=== PATIENT | female | born 1965 | race Caucasian/White ===

== ENCOUNTER 2019-03-07 11:42 | Inpatient (IN) ==
--- NOTE | 2019-03-07 11:47 | Emergency Department Note ---
Disposition Clinical Impression: Chest pain, Gall stones, Pulmonary nodule Disposition: Admitted As Inpatient Condition: Fair General Adult HPI - General Chief complaint: ED Chest Pain Stated complaint: Chest Pain Time Seen by Provider: 03/07/19 11:43 - Related Data Home Medications Medication Instructions Recorded Confirmed Acetaminophen [Tylenol] 1,000 mg PO Q6HR PRN 03/07/19 03/07/19 Escitalopram [Lexapro] 20 mg PO DAILY 03/07/19 03/07/19 Ibuprofen [Advil] 400 mg PO Q6H PRN 03/07/19 03/07/19 Allergies Allergy/AdvReac Type Severity Reaction Status Date / Time meperidine [From Demerol] Allergy See Verified 03/07/19 11:45 Comments clarithromycin AdvReac Nausea Verified 03/07/19 15:42 Past Medical History - Past Medical History Medical history: Reports: GERD Surgical history: Reports: hysterectomy Psychiatric history: Reports: depression - Social History Smoking Status: Never smoker Smokeless Tobacco Status: No Alcohol use: Reports: none Drug use: Reports: none Course Vital Signs Temperature 99.4 F 03/07/19 11:45 Pulse Rate 90 03/07/19 11:45 Respiratory Rate 22 03/07/19 11:45 Blood Pressure 152/92 03/07/19 11:45 O2 Sat by Pulse Oximetry 100 03/07/19 11:45 Temperature 100.0 F H 03/07/19 15:04 Pulse Rate 96 03/07/19 15:04 Respiratory Rate 17 03/07/19 15:04 Blood Pressure 149/69 03/07/19 15:04 O2 Sat by Pulse Oximetry 97 03/07/19 15:04 Oxygen Delivery Oxygen Delivery Room Air Medical Decision Making - Lab Data Result diagrams: 03/07/19 11:50 03/07/19 11:50 Lab Results 03/07/19 03/07/19 03/07/19 Range/Units 11:50 11:50 11:50 WBC 8.7 (4.3-11.1) K/mcL RBC 4.21 (3.82-4.97) M/mcL Hgb 12.5 (11.5-15.4) g/dL Hct 39.3 (35.3-44.9) % MCV 93.3 (83.0-100.0) fL MCH 29.7 (28.0-33.3) pg MCHC 31.8 (31.6-35.5) g/dL RDW 13.7 (11.5-14.5) % Plt Count 253 (140-400) K/mcL MPV 10.4 (9.4-12.4) fL Immature Gran % 0.3 (0-4) % Seg Neutrophils % 77.6 % Lymphocytes % 11.9 % Monocytes % 6.5 % Eosinophils % 3.5 % Basophils % 0.2 % Neutrophils # 6.7 (1.6-8.9) K/mcL Lymphocytes # 1.0 (0.6-4.6) K/mcL Monocytes # 0.6 (0.0-1.3) K/mcL Eosinophils # 0.3 (0.0-0.6) K/mcL Basophils # 0.0 (0.0-0.2) K/mcL D-Dimer 754 H (0-500) ng/mLFEU Sodium 140 (136-145) mEq/L Potassium 4.2 (3.5-5.1) mEq/L Chloride 108 H (98-107) mEq/L Carbon Dioxide 25 (23-29) mEq/L BUN 17 (6-20) mg/dL Creatinine 0.79 (0.60-1.20) mg/dL Est GFR ( Amer) > 60 (> 60) Est GFR (Non-Af Amer) > 60 (> 60) BUN/Creatinine Ratio 22 (6-26) Glucose 99 (70-105) mg/dL Calculated Osmolality 292 (280-300) Calcium 8.9 (8.6-10.3) mg/dL Total Bilirubin 0.3 (0.3-1.0) mg/dL Direct Bilirubin 0.1 (0.0-0.2) mg/dL Indirect Bilirubin 0.2 (0.0-1.2) mg/dL AST 20 (13-39) Units/L ALT 34 (7-52) Units/L Alkaline Phosphatase 65 (34-104) Units/L Troponin I < 0.03 (< 0.04) ng/mL Serum Total Protein 7.1 (6.4-8.9) g/dL Albumin 4.3 (3.5-5.7) g/dL Globulin 2.8 (2.4-3.5) g/dL Albumin/Globulin Ratio 1.5 (1.1-2.2) Lipase 82 (11-82) Units/L Attestation Statement - Attestation Attestation: I reviewed the residents documentation and agree with the residents assessment and plan of care. I have personally had face to face time with the patient. (Brief History, Brief Exam, and MDM) I personally supervised and was present for the andrea/critical portions of the following procedures completed by the resident: (add procedures performed here). [id number] time provided Patient arrives complaining of chest discomfort. She states she "has not felt well" all morning but the chest discomfort started just prior to arrival. No known previous history of cardiac problems. She is tearful and uncomfortable appearing on exam. I attest to supervising the resident physician's interpretation of the ECG
[2019-03-07] MEDS ORDERED: Aspirin 325 MG TABLET PO ONE (11:50)
--- NOTE | 2019-03-07 11:51 | Emergency Department Note ---
Disposition Clinical Impression: Gall stones, Pulmonary nodule Chest pain Qualifiers: Chest pain type: unspecified Qualified Code(s): R07.9 - Chest pain, unspecified Disposition: Admitted As Inpatient Condition: Fair Referrals: Jc Mcintosh DO [Primary Care Provider] - Forms: ED Satisfaction Letter Time of Disposition: 14:18 Chest Pain HPI - General Chief Complaint: ED Chest Pain Stated Complaint: Chest Pain Time Seen by Provider: 03/07/19 11:43 Source: patient Mode of arrival: ambulatory Limitations: no limitations Vital Signs Reviewed: Yes Nursing Notes Reviewed: Yes - History of Present Illness HPI Narrative: 53-year-old female presents for evaluation of chest pain. Patient states symptom onset occurred approximately an hour prior to arrival. Patient states she was not feeling well this morning. Notes nausea but no vomiting. Patient describing left sided chest pain with pain or neck as well as pain in her shoulder. Patient denies prior history of heart attacks. Patient denies history of hypertension or diabetes. Does have family history of early heart disease with first-degree relatives having heart attacks in their early 40s. Patient denies any fevers or cough. No aggravating or alleviating symptoms. No pleuritic component. No history of DVT or PE. Patient states she does see a doctor on a regular basis. Severity scale (1-10): 7 - Related Data Home Medications Medication Instructions Recorded Confirmed Acetaminophen [Tylenol] 1,000 mg PO Q6HR PRN 03/07/19 03/07/19 Escitalopram [Lexapro] 20 mg PO DAILY 03/07/19 03/07/19 Ibuprofen [Advil] 400 mg PO Q6H PRN 03/07/19 03/07/19 Allergies Allergy/AdvReac Type Severity Reaction Status Date / Time meperidine [From Demerol] Allergy See Verified 03/07/19 11:45 Comments All systems ED: reviewed and negative except as stated. Constitutional: Denies: fever Cardiovascular: Reports: chest pain Respiratory: Reports: dyspnea. Denies: cough Gastrointestinal: Denies: abdominal pain, nausea, vomiting Chest Pain PMH - Past Medical History Medical history: Reports: GERD Surgical history: Reports: hysterectomy Psychiatric history: Reports: depression SIDE STITCHER history: Reports: non-contributory - Social History Smoking Status: Never smoker Alcohol use: Reports: none Drug use: Reports: none Physical Exam - General Limitations: no limitations General appearance: alert, in no apparent distress - Head Head exam: atraumatic, normocephalic, normal inspection - Eye Eye exam: Present: normal appearance - ENT ENT exam: normal exam, mucous membranes moist - Neck Neck exam: Present: normal inspection - Chest Chest inspection: Present: normal inspection, symmetric chest wall rise. Absent: tenderness - Respiratory Respiratory exam: Absent: respiratory distress, prolonged expiratory phase - Cardiovascular Cardiovascular exam: Present: regular rate, normal rhythm. Absent: normal heart sounds - Abdominal Exam Abdominal exam: Present: soft, Non-Tender - Extremities Exam Extremities exam: Present: normal inspection. Absent: pedal edema - Expanded Lower Extremity Exam Neurovascular/Tendon exam: Present: normal capillary refill - Back Exam Back exam: Present: normal inspection - Neurological Exam Neurological exam: Present: alert, oriented X3, CN II-XII intact - Skin Skin exam: Present: warm, dry, intact, normal color Course Course Narrative: Patient seen and examined. Patient is complaining of chest pain. Patient is deemed low risk and will also obtain a d-dimer given her history and EKG. Disposition pending. - Reevaluation(s) Reevaluation #1: Patient states that the nitroglycerin did help with her chest pain. Patient is complaining of some nausea and some epigastric pain. Patient's d-dimer came back elevated. We will obtain a CTA chest. Patient's updated on current plan of care. Time: 12:33 Reevaluation #2: Review [facility] G shows normal sinus rhythm left axis. No ST elevation. [address] depression in the 1. No acute changes. Time: 12:49 Vital Signs Temperature 99.4 F 03/07/19 11:45 Pulse Rate 90 03/07/19 11:45 Respiratory Rate 22 03/07/19 11:45 Blood Pressure 152/92 03/07/19 11:45 O2 Sat by Pulse Oximetry 100 03/07/19 11:45 Temperature 99.4 F 03/07/19 11:45 Pulse Rate 84 03/07/19 14:06 Respiratory Rate 18 03/07/19 14:06 Blood Pressure 151/97 03/07/19 14:06 O2 Sat by Pulse Oximetry 100 03/07/19 14:06 Oxygen Delivery Oxygen Delivery Room Air Chest Pain - MDM Narrative Medical decision making narrative: Patient presented for concerns of chest pain. Patient looked uncomfortable. Patient did have an abnormal EKG with some mild ST depression in lead 1. Patient received aspirin and nitroglycerin. Patient's chest pain resolved after the nitroglycerin. Patient was however complaining of some different pain in her chest which appears to be upper left sided abdominal pain. Patient initial troponin negative. Serial EKGs are unremarkable. Patient did have mildly elevated d-dimer and a CTA of the chest was obtained which shows no PE however the patient does have evidence of gallstones on CT scan. Patient will get an ultrasound however the patient will still need to be admitted for moderate risk heart score. Patient is agreeable with admission for serial troponins and continued cardiac evaluation. - Lab Data Lab results reviewed: Yes I reviewed the patient's lab results. Result diagrams: 03/07/19 11:50 03/07/19 11:50 Lab Results 03/07/19 03/07/19 03/07/19 Range/Units 11:50 11:50 11:50 WBC 8.7 (4.3-11.1) K/mcL RBC 4.21 (3.82-4.97) M/mcL Hgb 12.5 (11.5-15.4) g/dL Hct 39.3 (35.3-44.9) % MCV 93.3 (83.0-100.0) fL MCH 29.7 (28.0-33.3) pg MCHC 31.8 (31.6-35.5) g/dL RDW 13.7 (11.5-14.5) % Plt Count 253 (140-400) K/mcL MPV 10.4 (9.4-12.4) fL Immature Gran % 0.3 (0-4) % Seg Neutrophils % 77.6 % Lymphocytes % 11.9 % Monocytes % 6.5 % Eosinophils % 3.5 % Basophils % 0.2 % Neutrophils # 6.7 (1.6-8.9) K/mcL Lymphocytes # 1.0 (0.6-4.6) K/mcL Monocytes # 0.6 (0.0-1.3) K/mcL Eosinophils # 0.3 (0.0-0.6) K/mcL Basophils # 0.0 (0.0-0.2) K/mcL D-Dimer 754 H (0-500) ng/mLFEU Sodium 140 (136-145) mEq/L Potassium 4.2 (3.5-5.1) mEq/L Chloride 108 H (98-107) mEq/L Carbon Dioxide 25 (23-29) mEq/L BUN 17 (6-20) mg/dL Creatinine 0.79 (0.60-1.20) mg/dL Est GFR ( Amer) > 60 (> 60) Est GFR (Non-Af Amer) > 60 (> 60) BUN/Creatinine Ratio 22 (6-26) Glucose 99 (70-105) mg/dL Calculated Osmolality 292 (280-300) Calcium 8.9 (8.6-10.3) mg/dL Total Bilirubin 0.3 (0.3-1.0) mg/dL Direct Bilirubin 0.1 (0.0-0.2) mg/dL Indirect Bilirubin 0.2 (0.0-1.2) mg/dL AST 20 (13-39) Units/L ALT 34 (7-52) Units/L Alkaline Phosphatase 65 (34-104) Units/L Troponin I < 0.03 (< 0.04) ng/mL Serum Total Protein 7.1 (6.4-8.9) g/dL Albumin 4.3 (3.5-5.7) g/dL Globulin 2.8 (2.4-3.5) g/dL Albumin/Globulin Ratio 1.5 (1.1-2.2) Lipase 82 (11-82) Units/L - Radiology Data Radiology results reviewed: Yes I reviewed the patient's radiology results. Chest X-Ray 03/07/19 11:45 IMPRESSION: No acute process. D/ / Maria Ines Mejia MD / Maria Ines Mejia MD Interpreting Provider: Maria Ines Mejia MD Chest CTA 03/07/19 12:30 IMPRESSION: No pulmonary embolism or acute pulmonary process demonstrated. Left lower lobe pulmonary nodule for which PET-CT evaluation is recommended. This would be a very difficult location to biopsy. Lower mediastinal adenopathy which may either be reactive or metastatic. D/ / Mihir Childers MD / Mihir Childers MD Interpreting Provider: Mihir Childers MD - EKG Data EKG attestation: Yes I reviewed and interpreted this EKG. EKG shows normal: sinus rhythm Rhythm: NSR [place]/QRS: left axis deviation ST segment depression in: I T wave inversions noted in: v1 Interpretation: no acute changes, nonspecific ST-T wave changes Heart Score - Score History: Moderately Suspicious EKG: Non Specific repolarisation Disturbance Age: 45-65 Risk Factors: 1-2 risk factors Troponin: Less than normal limit HEART Score Total: 4 S.Enedina.Milad - Cari.Eze Situation: Demographics Background: Presenting Complaint Assessment: Vital Signs, Course and respsone to treatment, Patient/Family Expectation Recommendation: Barrier(s) to disposition, Recommendation based on pending studies, treatments, or consults [facility] Report Given to: Hospitalist Damian Hamilton Time: 14:20
[2019-03-07] MEDS ORDERED: Nitroglycerin 0.4 MG TAB.SUBL SL ONE (11:59)
[2019-03-07] MEDS ORDERED: 0.9 % Sodium Chloride 1,000 ML ONE (12:00)
[2019-03-07] MEDS: Nitroglycerin 0.4 MG TAB.SUBL SL PRN ×2 (12:03→12:09)
[2019-03-07 12:14] LABS: Basophils % 0.2 %; Eosinophils # 0.3 K/mcL (0.0-0.6); Eosinophils % 3.5 %; Hematocrit 39.3 % (35.3-44.9); Hemoglobin 12.5 g/dL (11.5-15.4); Immature Granulocytes % 0.3 % (0-4); Lymphocytes % 11.9 %; Mean Corpuscular HGB Conc 31.8 g/dL (31.6-35.5); Mean Corpuscular Hemoglobin 29.7 pg (28.0-33.3); Mean Corpuscular Volume 93.3 fL (83.0-100.0); Mean Platelet Volume 10.4 fL (9.4-12.4); Monocytes # 0.6 K/mcL (0.0-1.3); Monocytes % 6.5 %; Neutrophils # 6.7 K/mcL (1.6-8.9); Platelet Count 253 K/mcL (140-400); Red Blood Count 4.21 M/mcL (3.82-4.97); Red Cell Distribution Width 13.7 % (11.5-14.5); Segmented Neutrophils % 77.6 %
[2019-03-07] MEDS ORDERED: Isovue-370 500 ML BOTTLE IVP ONE (12:30)
[2019-03-07] MEDS ORDERED: Ondansetron 4 MG/2 ML VIAL IVP ONE (12:33)
[2019-03-07 12:40] LABS: Alanine Aminotransferase 34 Units/L (7-52); Albumin 4.3 g/dL (3.5-5.7); Albumin/Globulin Ratio 1.5 (1.1-2.2); Alkaline Phosphatase 65 Units/L (34-104); Aspartate Amino Transferase 20 Units/L (13-39); BUN/Creatinine Ratio 22 (6-26); Bilirubin,Direct 0.1 mg/dL (0.0-0.2); Bilirubin,Indirect 0.2 mg/dL (0.0-1.2); Bilirubin,Total 0.3 mg/dL (0.3-1.0); Blood Urea Nitrogen 17 mg/dL (6-20); Calcium 8.9 mg/dL (8.6-10.3); Carbon Dioxide 25 mEq/L (23-29); Chloride 108 mEq/L (98-107); Globulin 2.8 g/dL (2.4-3.5); Glucose 99 mg/dL (70-105); Lipase 82 Units/L (11-82); Osmolality,Calculated 292 (280-300); Potassium 4.2 mEq/L (3.5-5.1); Sodium 140 mEq/L (136-145); Total Protein 7.1 g/dL (6.4-8.9); Troponin I < 0.03 ng/mL (< 0.04); eGFR For Non-African Americans > 60 (> 60)
[2019-03-07] MEDS ORDERED: *HR* Morphine 2 MG/ML SYRINGE IVP ONE (14:15)
[2019-03-07] MEDS ORDERED: MOM Conc 10 ML UD.LIQ PO PRN (15:02)
[2019-03-07] MEDS ORDERED: Ondansetron 4 MG/2 ML VIAL IVP PRN (15:02)
[2019-03-07] MEDS ORDERED: Naloxone 0.4 MG/ML INJ IVP PRN (15:02)
[2019-03-07] MEDS ORDERED: *HR* Promethazine 25 MG/ML VIAL IVP PRN (15:02)
[2019-03-07] MEDS ORDERED: Mag Hydrox/Al Hydrox/Simeth 30 ML UDC PO PRN (15:02)
--- NOTE | 2019-03-07 15:14 | Internal Med History&Physical ---
Date of Encounter: 03/07/19 Time of Encounter: 15:09 Internal Medicine - H&P: HPI Admitted From: Home Plans for Post Hospital Care: Home History of present illness: Ms. Red is a 53-year-old female with PMH of depression, GERD, and peptic ulcer disease presents for evaluation of chest pain. Patient states symptom onset occurred approximately an hour prior to arrival. Patient states she was not feeling well this morning. Notes nausea but no vomiting. Patient describing left sided chest pain with pain on neck as well as pain in her sh oulder. Patient denies prior history of heart attacks. Patient denies history of hypertension or diabetes. Does have family history of early heart disease with first-degree relatives having heart attacks in their early 40s. Patient denies any fevers or cough. No aggravating or alleviating symptoms. No pleuritic component. No history of DVT or PE. Patient states she does see a doctor on a regular basis. In the ED, pt first set of troponin was negative, EKG showed questionable ST-T changes on leads V1-V3. CTA chest revealed no PE, several enlarged mediastinal lymph nodes. She received one NTG with relief of symptoms. She later on reported left upper quadrant and epigastric pain and received one dose of Zofran. Pt also reported taking ibuprofen at home for pain. She will be admitted for further evaluation. Code status discussed with pt and she wished to be full code. Past Med Surg Social Fam HX - Past Medical History Medical history: GERD Additional medical history: disorder of sacram,endometriosis,peptic ulcers,retrolisthesis l2 on l3,bulding disc,lumbosacral sprain,sleep apnea Psychiatric history: depression - Past Surgical History Surgical History: hysterectomy Additional surgical history: tonsils, - Social History Smoking Status: Never smoker Smokeless Tobacco Status: No Alcohol use: none Drug use: none Internal Medicine - H&P: Meds Acetaminophen [Tylenol] 1,000 mg PO Q6HR PRN 03/07/19 [History] Escitalopram [Lexapro] 20 mg PO DAILY 03/07/19 [History] Ibuprofen [Advil] 400 mg PO Q6H PRN 03/07/19 [History] Allergy/AdvReac Type Severity Reaction Status Date / Time meperidine [From Demerol] Allergy See Verified 03/07/19 11:45 Comments All Systems PM: A 10-system review of systems was performed and is negative for pertinent findings except as documented above in the HPI. Review of systems: REVIEW OF SYSTEMS: CONSTITUTIONAL: No weight loss, fever, chills, weakness or fatigue. HEENT: Eyes: No visual loss, blurred vision, double vision or yellow sclerae. Ears, Nose, Throat: No hearing loss, sneezing, congestion, runny nose or sore throat. SKIN: No rash or itching. CARDIOVASCULAR: see HPI. RESPIRATORY: No shortness of breath, cough or sputum. GASTROINTESTINAL: No anorexia, nausea, vomiting or diarrhea. No abdominal pain or blood. GENITOURINARY: No dysuria, urgency, or frequency. NEUROLOGICAL: No headache, dizziness, syncope, paralysis, ataxia, numbness or tingling in the extremities. No change in bowel or bladder control. MUSCULOSKELETAL: No muscle, back pain, joint pain or stiffness. HEMATOLOGIC: No anemia, bleeding or bruising. LYMPHATICS: No enlarged nodes. No history of splenectomy. PSYCHIATRIC: No history of depression or anxiety. ENDOCRINOLOGIC: No reports of sweating, cold or heat intolerance. No polyuria or polydipsia. - Constitutional Vitals: Temp Pulse Resp BP Pulse Ox 100.0 F H 96 17 149/69 97 03/07/19 15:04 03/07/19 15:04 03/07/19 15:04 03/07/19 15:04 03/07/19 15:04 General appearance: Present: A&O X 3 Exam: PHYSICAL EXAMINATION: GENERAL APPEARANCE: The patient is alert, oriented and in no acute distress. HEENT: Head is normocephalic. The sinuses are nontender. Pupils are equal and reactive. The nares are patent. Oropharynx clear without lesions. NECK: Supple without lymphadenopathy. HEART: Regular rate and rhythm. LUNGS: No crackles or wheezes are heard. ABDOMEN: Soft, nontender, nondistended with good bowel sounds heard. Inguinal area is normal. EXTREMITIES: Without cyanosis, clubbing or edema. NEUROLOGICAL: Gross nonfocal. SKIN: Warm and dry without any rash. Internal Med - H&P Results - Labs CBC & Chem 7: 03/07/19 11:50 03/07/19 11:50 Labs: Short CBC 03/07/19 Range/Units 11:50 WBC 8.7 (4.3-11.1) K/mcL Hgb 12.5 (11.5-15.4) g/dL Hct 39.3 (35.3-44.9) % Plt Count 253 (140-400) K/mcL Neutrophils # 6.7 (1.6-8.9) K/mcL BMP 03/07/19 11:50 Sodium 140 Potassium 4.2 Chloride 108 H Carbon Dioxide 25 BUN 17 Creatinine 0.79 Glucose 99 Calcium 8.9 Cardiac Enzymes 03/07/19 Range/Units 11:50 Troponin I < 0.03 (< 0.04) ng/mL Liver Function 03/07/19 Range/Units 11:50 Total Bilirubin 0.3 (0.3-1.0) mg/dL Direct Bilirubin 0.1 (0.0-0.2) mg/dL AST 20 (13-39) Units/L ALT 34 (7-52) Units/L Alkaline Phosphatase 65 (34-104) Units/L Albumin 4.3 (3.5-5.7) g/dL - Impressions ITS Impressions Chest X-Ray 03/07/19 11:45 IMPRESSION: No acute process. D/ / Maria Ines Mejia MD / Maria Ines Mejia MD Interpreting Provider: Maria Ines Mejia MD Chest CTA 03/07/19 12:30 IMPRESSION: No pulmonary embolism or acute pulmonary process demonstrated. Left lower lobe pulmonary nodule for which PET-CT evaluation is recommended. This would be a very difficult location to biopsy. Lower mediastinal adenopathy which may either be reactive or metastatic. D/ / Mihir Childers MD / Mihir Childers MD Interpreting Provider: Mihir Childers MD - Assessment and Plan (1) Chest pain Current Visit: Yes Status: Acute Assessment and plan: 53 year old female without prior hx of CAD presented with left sided chest pain and epigastric pain. 1st set of troponin was negative. EKG showed possible st-t elevation on V1 and biphasic t wave on V2, however, these findings were obscured by the EKG baseline shifting. CTA chest no PE but revealed cholilithiasis without signs of acute cholecystitis, no obvious findings suggests esophagitis or perforated PUD. - continue cycling troponin, tele monitoring, and EKG as needed. - Stress test and echo in am. - empirically treated for PUD with IV PPI and carafate. May consult GI if cardiac workup is negative. - Lipid panel an am. Qualifiers: Chest pain type: unspecified Qualified Code(s): R07.9 - Chest pain, unspecified (2) Gall stones Current Visit: Yes Status: Acute Assessment and plan: CT incidental finding of gall stones but no acute cholecystitis. Monitoring. (3) Pulmonary nodule Current Visit: Yes Status: Acute Assessment and plan: incidental finding on CTA chest, outpatient f/u. (4) Depression Current Visit: No Status: Chronic Assessment and plan: continue home meds. Qualifiers: Depression Type: unspecified Qualified Code(s): F32.9 - Major depressive disorder, single episode, unspecified (5) Hx of peptic ulcer Current Visit: No Status: Chronic Assessment and plan: Hx of PUD currently not on PPI. take NSAIDS at home for pain. No signs/symptoms of GI bleeding or perforation. Empirically started on IV PPI and carafate. May consult GI if cardiac workup is negative. (6) GERD (gastroesophageal reflux disease) Current Visit: No Status: Chronic Assessment and plan: same as above. Qualifiers: Esophagitis presence: esophagitis presence not specified Qualified Code(s): K21.9 - Gastro-esophageal reflux disease without esophagitis (7) DVT prophylaxis Current Visit: Yes Status: Acute Assessment and plan: ambulate. - Time Spent With Patient Total time spent is greater than 50% in coordination of care (as documented) at patient's floor/unit and/or counseling patient: Greater than 35 minutes
[2019-03-07] MEDS: Pantoprazole 40 MG VIAL IVP SCH (16:15)
[2019-03-07] MEDS: Sucralfate 1 GM TABLET PO SCH ×2 (16:15→21:16)
[2019-03-07] MEDS: traMADol 50 MG TABLET PO PRN (16:15)
[2019-03-07] MEDS: Acetaminophen 325 MG TABLET PO PRN (17:47)
[2019-03-07] MEDS ORDERED: Perflutren Lipid Microsphere 1.3 ML in 0.9 % Sodium Chloride 8.7 ML IVP ONE (19:42)
--- NOTE | 2019-03-07 22:21 | Electrocardiograph Report ---
[facility] Test Date: 2019-03-07 Pat Name: Winifred Red Department: [id number] Room: 3B33 Gender: F [employer]: : 1965 Requested By: Anish Mckeon Order Number: [id number] Reading MD: Kamar Renner Measurements Intervals [place] Rate: 61 P: 51 [place]: 142 QRS: -12 QRSD: 97 T: 34 QT: 401 QTc: 404 Interpretive Statements Sinus rhythm Electronically Signed On 03-07-2019 22:19:24 EDT by Kamar Renner
[2019-03-08] MEDS: Acetaminophen 325 MG TABLET PO PRN ×2 (00:55→09:32)
[2019-03-08] MEDS: traMADol 50 MG TABLET PO PRN ×3 (03:36→22:29)
[2019-03-08 04:27] LABS: Basophils % 0.2 %; Eosinophils # 0.2 K/mcL (0.0-0.6); Eosinophils % 3.3 %; Hematocrit 38.1 % (35.3-44.9); Immature Granulocytes % 0.4 % (0-4); Lymphocytes # 0.9 K/mcL (0.6-4.6); Lymphocytes % 18.7 %; Mean Corpuscular HGB Conc 31.5 g/dL (31.6-35.5); Mean Corpuscular Hemoglobin 29.7 pg (28.0-33.3); Mean Corpuscular Volume 94.3 fL (83.0-100.0); Mean Platelet Volume 10.5 fL (9.4-12.4); Monocytes # 0.4 K/mcL (0.0-1.3); Monocytes % 7.9 %; Neutrophils # 3.4 K/mcL (1.6-8.9); Platelet Count 231 K/mcL (140-400); Red Blood Count 4.04 M/mcL (3.82-4.97); Red Cell Distribution Width 13.9 % (11.5-14.5); Segmented Neutrophils % 69.5 %
[2019-03-08 04:49] LABS: BUN/Creatinine Ratio 14 (6-26); Blood Urea Nitrogen 13 mg/dL (6-20); Calcium 8.6 mg/dL (8.6-10.3); Carbon Dioxide 25 mEq/L (23-29); Chloride 107 mEq/L (98-107); Chol/HDL Ratio 2.8 (0-4.9); Cholesterol 128 mg/dL (< 200); Glucose 105 mg/dL (70-105); HDL Cholesterol 46 mg/dL (40-59); LDL Cholesterol,Calculated 65 mg/dL (0-99); Osmolality,Calculated 290 (280-300); Sodium 140 mEq/L (136-145); Triglycerides 85 mg/dL (< 150); eGFR For Non-African Americans > 60 (> 60)
[2019-03-08] MEDS: Pantoprazole 40 MG VIAL IVP SCH ×2 (05:44→18:07)
[2019-03-08] MEDS ORDERED: Regadenoson 0.4 MG/5 ML SYRINGE IVP ONE (07:38)
[2019-03-08] MEDS: Sucralfate 1 GM TABLET PO SCH ×4 (09:29→22:26)
--- NOTE | 2019-03-08 11:49 | Internal Med Progress Note ---
Hospitalist Progress Note - Encounter Date of Encounter: 03/08/19 Time of Encounter: 11:46 - Subjective Interval History: Patient is seen and examined in the room. She reported improved chest pain and the left-sided abdominal pain. Overnight, patient denies fever, night sweats, or chills. - Exam Vitals: Temp Pulse Resp BP Pulse Ox 97.5 F L 75 18 95/63 96 03/08/19 11:40 03/08/19 11:40 03/08/19 11:40 03/08/19 11:40 03/08/19 11:40 Exam: PHYSICAL EXAMINATION: GENERAL APPEARANCE: The patient is alert, oriented and in no acute distress. HEENT: Head is normocephalic. The sinuses are nontender. Pupils are equal and reactive. The nares are patent. Oropharynx clear without lesions. NECK: Supple without lymphadenopathy. HEART: Regular rate and rhythm. LUNGS: No crackles or wheezes are heard. ABDOMEN: Soft, nontender, nondistended with good bowel sounds heard. Inguinal area is normal. EXTREMITIES: Without cyanosis, clubbing or edema. NEUROLOGICAL: Gross nonfocal. SKIN: Warm and dry without any rash. - Assessment and Plan (1) Chest pain Current Visit: Yes Status: Acute Assessment and Plan: 03/07 53 year old female without prior hx of CAD presented with left sided chest pain and epigastric pain. 1st set of troponin was negative. EKG showed possible st-t elevation on V1 and biphasic t wave on V2, however, these findings were obscured by the EKG baseline shifting. CTA chest no PE but revealed cholilithiasis without signs of acute cholecystitis, no obvious findings suggests esophagitis or perforated PUD. - continue cycling troponin, tele monitoring, and EKG as needed. - Stress test and echo in am. - empirically treated for PUD with IV PPI and carafate. May consult GI if cardiac workup is negative. - Lipid panel an am. 03/08 Serial troponin was negative 3, EKG has no acute ST-T change overnight. Patient currently chest pain-free. Pending stress test and echocardiogram. (2) Gall stones Current Visit: Yes Status: Acute Assessment and Plan: CT incidental finding of gall stones but no acute cholecystitis. Monitoring. (3) Pulmonary nodule Current Visit: Yes Status: Acute Assessment and Plan: incidental finding on CTA chest, outpatient f/u. (4) Depression Current Visit: No Status: Chronic Assessment and Plan: continue home meds. (5) Hx of peptic ulcer Current Visit: No Status: Chronic Assessment and Plan: Hx of PUD currently not on PPI. take NSAIDS at home for pain. No signs/symptoms of GI bleeding or perforation. Empirically started on IV PPI and carafate. May consult GI if cardiac workup is negative. (6) GERD (gastroesophageal reflux disease) Current Visit: No Status: Chronic Assessment and Plan: same as above. (7) DVT prophylaxis Current Visit: Yes Status: Acute Assessment and Plan: ambulate. - Time Spent with Patient Total time spent is greater than 50% in coordination of care (as documented) at patient's floor/unit and/or counseling patient: Greater than 35 minutes Plan of Care Discussed with: patient Internal Medicine: Result - Labs CBC & Chem 7: 03/08/19 03:45 03/08/19 03:45 Labs: Short CBC 03/07/19 03/08/19 Range/Units 11:50 03:45 WBC 8.7 4.9 (4.3-11.1) K/mcL Hgb 12.5 12.0 (11.5-15.4) g/dL Hct 39.3 38.1 (35.3-44.9) % Plt Count 253 231 (140-400) K/mcL Neutrophils # 6.7 3.4 (1.6-8.9) K/mcL BMP 03/07/19 03/08/19 11:50 03:45 Sodium 140 140 Potassium 4.2 4.0 Chloride 108 H 107 Carbon Dioxide 25 25 BUN 17 13 Creatinine 0.79 0.93 Glucose 99 105 Calcium 8.9 8.6 Cardiac Enzymes 03/07/19 03/07/19 03/08/19 Range/Units 11:50 18:53 00:50 Troponin I < 0.03 < 0.03 < 0.03 (< 0.04) ng/mL Liver Function 03/07/19 Range/Units 11:50 Total Bilirubin 0.3 (0.3-1.0) mg/dL Direct Bilirubin 0.1 (0.0-0.2) mg/dL AST 20 (13-39) Units/L ALT 34 (7-52) Units/L Alkaline Phosphatase 65 (34-104) Units/L Albumin 4.3 (3.5-5.7) g/dL - ABG Interpretation ABG results: PT/INR, D-dimer 754 ng/mLFEU (0-500) H 03/07/19 11:50 - Impressions Impressions Chest X-Ray 03/07/19 11:45 IMPRESSION: No acute process. D/ / Maria Ines Mejia MD / Maria Ines Mejia MD Interpreting Provider: Maria Ines Mejia MD Chest CTA 03/07/19 12:30 IMPRESSION: No pulmonary embolism or acute pulmonary process demonstrated. Left lower lobe pulmonary nodule for which PET-CT evaluation is recommended. This would be a very difficult location to biopsy. Lower mediastinal adenopathy which may either be reactive or metastatic. D/ / Mihir Childers MD / Mihir Childers MD Interpreting Provider: Mihir Childers MD Consult Discharge Plan - Plan Referrals: Jc Mcintosh DO [Primary Care Provider] - 03/14/19 9:30 am () (1) Chest pain Qualifiers: Chest pain type: unspecified Qualified Code(s): R07.9 - Chest pain, unspecified (4) Depression Qualifiers: Depression Type: unspecified Qualified Code(s): F32.9 - Major depressive disorder, single episode, unspecified (6) GERD (gastroesophageal reflux disease) Qualifiers: Esophagitis presence: esophagitis presence not specified Qualified Code(s): K21.9 - Gastro-esophageal reflux disease without esophagitis
--- NOTE | 2019-03-08 17:59 | AcuteCare Surgery Consult Note ---
<WalkerAnnabelle N - Last Filed: 03/08/19 17:56> Date of Encounter: 03/08/19 Time of Encounter: 05:00 Assessment and Plan (1) Abdominal pain Current Visit: Yes Status: Acute 53-year-old female admitted with epigastric abdominal pain radiating to the left chest wall associated with nausea Patient previously diagnosed with chronic gastritis and H. pylori on EGD in October 2018 Patient was appropriately treated at that time with 2 antibiotics and a PPI For the past 3 months patient reports increased epigastric pain which has been controlled with omeprazole and ranitidine with occasional use of Tums as well Patient denies any hematochezia, melena, vomiting or hematemesis Patient is currently undergoing cardiac workup with 2 day stress test as there was concern for chest pain on admission Pending results of the cardiac evaluation will plan for possible EGD during this admission Patient agrees with plan and all of her questions were answered Continue Protonix, Carafate, and anti-emetics Qualifiers: Abdominal location: epigastric Qualified Code(s): R10.13 - Epigastric pain History of Present Illness Consult date: 03/08/19 History of present illness: Patient is a 53-year-old female with a past medical history of chronic gastritis with positive H. pylori diagnosed on EGD with biopsy in October 2017. At that time patient was treated with 2 antibiotics and a PPI. Patient reports a 3 month history of worsening epigastric pain and discomfort. She states that she had relief with omeprazole and ranitidine with occasional Tums as an outpatient. Patient presented to the hospital for 1 day acute exacerbation of her epigastric abdominal pain with radiation to the left chest wall. In the emergency department patient's cardiac workup was generally unremarkable. CTA chest was performed and was negative for PE, however there are incidental findings of cholelithiasis but no evidence for cholecystitis. Patient is admitted the hospital is currently undergoing cardiac workup. Due to history of chronic gastritis with H. pylori and current epigastric pain patient was started on Protonix 40 mg twice a day and Carafate with symptomatic improvement in patient's abdominal pain. Acute care surgery was consulted for further evaluation and recommendations. Patient is currently resting in bed, appears comfortable and is tolerating her clear liquid diet. Abdomen is soft and mildly tender on deep palpation of the epigastric region. There is no guarding or rigidity. Patient denies any change in her stools. Denies any hematochezia or melena. Denies any recent vomiting, but reports significant nausea. Past Med Surg Social Fam HX - Past Medical History Medical history: GERD Additional medical history: disorder of sacrum L4/L5,endometriosis,peptic ulcers,retrolisthesis l2 on l3,bulding disc,lumbosacral sprain,sleep apnea Psychiatric history: anxiety, depression - Past Surgical History Surgical History: hysterectomy Additional surgical history: tonsils - Social History Smoking Status: Never smoker Smokeless Tobacco Status: No Alcohol use: occasionally Drug use: none - Family History Mother Living Status: Age at : 73 Cause of : CHF Hx Family Cardiac Disorders: Yes (Rheumatic Heart Disease, CHF, CABG, Mitral valve replacement) Hx Family Respiratory Disorders: Yes (pulmonary HTN) Hx Family GI Disorders: Yes (vimal) Father Living Status: Age at : 64 Cause of : [facility] cancer Hx Family Respiratory Disorders: Yes (lung) Medications and Allergies Acetaminophen [Tylenol] 1,000 mg PO Q6HR PRN 03/07/19 [History] Escitalopram [Lexapro] 20 mg PO DAILY 03/07/19 [History] Ibuprofen [Advil] 400 mg PO Q6H PRN 03/07/19 [History] Allergy/AdvReac Type Severity Reaction Status Date / Time meperidine [From Demerol] Allergy See Verified 03/07/19 11:45 Comments clarithromycin AdvReac Nausea Verified 03/07/19 15:42 Review of Systems All systems PM: The remainder of the systems were reviewed and are negative - Constitutional fever(s), no chills - Cardiovascular no chest pain - Respiratory no dyspnea - Gastrointestinal abdominal pain, bloating, nausea, no diarrhea, no hematochezia, no melena, no vomiting - Genitourinary Genitourinary: no dysuria - Integumentary no rash - Endocrine polyuria General Surgery Exam Initial Vital Signs Temp Pulse Resp BP Pulse Ox 99.4 F 90 22 152/92 100 03/07/19 11:45 03/07/19 11:45 03/07/19 11:45 03/07/19 11:45 03/07/19 11:45 - General physical appearance well developed, well nourished - Eyes PERRL, normal ocular movement - ENT normal pinna, normal nares - Neck trachea midline, no venous distension - Respiratory normal expansion, normal respiratory effort, clear to auscultation - Cardiovascular Cardiovascular exam: Present: RRR. Absent: murmurs - Abdomen Abdomen general surgery: Present: bowel sounds present, soft, tender (Mild t enderness to palpation without guarding in the epigastric region) - Integumentary Integumentary general surgery: Present: warm and dry - Neurologic Present: CN 2-12 grossly intact - Musculoskeletal Present: normal posture - Psychiatric Psychiatric general surgery: Present: A&Ox3 Exam Initial Vital Signs Temp Pulse Resp BP Pulse Ox 99.4 F 90 22 152/92 100 03/07/19 11:45 03/07/19 11:45 03/07/19 11:45 03/07/19 11:45 03/07/19 11:45 Results - Labs 03/08/19 03:45 03/08/19 03:45 Abnormal lab results MCHC 31.5 g/dL (31.6-35.5) L 03/08/19 03:45 754 ng/mLFEU (0-500) H 03/07/19 11:50 Chloride 108 mEq/L (98-107) H 03/07/19 11:50 Diabetes panel 03/08/19 Range/Units 03:45 Sodium 140 (136-145) mEq/L Potassium 4.0 (3.5-5.1) mEq/L Chloride 107 (98-107) mEq/L Carbon Dioxide 25 (23-29) mEq/L BUN 13 (6-20) mg/dL Creatinine 0.93 (0.60-1.20) mg/dL Glucose 105 (70-105) mg/dL Calcium 8.6 (8.6-10.3) mg/dL Triglycerides 85 (< 150) mg/dL HDL Cholesterol 46 (40-59) mg/dL Calcium panel 03/08/19 Range/Units 03:45 Calcium 8.6 (8.6-10.3) mg/dL Pituitary panel 03/08/19 Range/Units 03:45 Sodium 140 (136-145) mEq/L Potassium 4.0 (3.5-5.1) mEq/L Chloride 107 (98-107) mEq/L Carbon Dioxide 25 (23-29) mEq/L BUN 13 (6-20) mg/dL Creatinine 0.93 (0.60-1.20) mg/dL Glucose 105 (70-105) mg/dL Calcium 8.6 (8.6-10.3) mg/dL Adrenal panel 03/08/19 Range/Units 03:45 Sodium 140 (136-145) mEq/L Potassium 4.0 (3.5-5.1) mEq/L Chloride 107 (98-107) mEq/L Carbon Dioxide 25 (23-29) mEq/L BUN 13 (6-20) mg/dL Creatinine 0.93 (0.60-1.20) mg/dL Glucose 105 (70-105) mg/dL Calcium 8.6 (8.6-10.3) mg/dL All other labs normal. Consult Discharge Plan - Plan Referrals: Jc Mcintosh DO [Primary Care Provider] - 03/14/19 9:30 am () <Lucian Barbosa - Last Filed: 03/09/19 13:51> Date of Encounter: 03/08/19 Review of Systems All systems PM: The remainder of the systems were reviewed and are negative General Surgery Exam Initial Vital Signs Temp Pulse Resp BP Pulse Ox 99.4 F 90 22 152/92 100 03/07/19 11:45 03/07/19 11:45 03/07/19 11:45 03/07/19 11:45 03/07/19 11:45 Exam Initial Vital Signs Temp Pulse Resp BP Pulse Ox 99.4 F 90 22 152/92 100 03/07/19 11:45 03/07/19 11:45 03/07/19 11:45 03/07/19 11:45 03/07/19 11:45 Results - Labs 03/08/19 03:45 03/08/19 03:45 Abnormal lab results MCHC 31.5 g/dL (31.6-35.5) L 03/08/19 03:45 754 ng/mLFEU (0-500) H 03/07/19 11:50 Chloride 108 mEq/L (98-107) H 03/07/19 11:50 All other labs normal. - Attending Attestation I examined this patient and my medical decision-making was reviewed with the Resident Physician. I agree with the documented findings, disposition and treatment plan as described except to the extent set forth below. Review the above assessment and evaluation with the resident and agree with the above plan. Patient initially been having symptoms of epigastric pain however recently her pain worsened and extended towards the left chest area. She is been evaluated for possible cardiac issues and has an echo pending tomorrow. The patient states that since she has been on Carafate and PPI her symptoms have improved. She has mild tenderness to palpation in the epigastrium and left upper quadrant with no pain to palpation right upper quadrant. Noted CT scan shows gallstones but her symptoms are not biliary colic in nature. Agree with need for an EGD once her cardiac evaluation has been completed. Will follow with you.
[2019-03-09] MEDS: Pantoprazole 40 MG VIAL IVP SCH ×2 (05:39→16:37)
[2019-03-09] MEDS ORDERED: Regadenoson 0.4 MG/5 ML SYRINGE IVP ONE (06:20)
[2019-03-09] MEDS: Sucralfate 1 GM TABLET PO SCH ×4 (09:33→22:20)
[2019-03-09] MEDS: traMADol 50 MG TABLET PO PRN ×2 (09:33→19:45)
--- NOTE | 2019-03-09 10:17 | Internal Med Progress Note ---
Hospitalist Progress Note - Encounter Date of Encounter: 03/09/19 Time of Encounter: 10:14 - Subjective Interval History: Patient seen and examined in room. Still reported epigastric pain but is improving with treatment. Denies chest pain currently, has no shortness of breath, palpitation, or lightheadedness. Denies black stool or bloody stool. - Exam Vitals: Temp Pulse Resp BP Pulse Ox 98.6 F 74 15 131/79 99 03/09/19 09:10 03/09/19 09:10 03/09/19 09:10 03/09/19 09:10 03/09/19 09:10 Exam: PHYSICAL EXAMINATION: GENERAL APPEARANCE: The patient is alert, oriented and in no acute distress. HEENT: Head is normocephalic. The sinuses are nontender. Pupils are equal and reactive. The nares are patent. Oropharynx clear without lesions. NECK: Supple without lymphadenopathy. HEART: Regular rate and rhythm. LUNGS: No crackles or wheezes are heard. ABDOMEN: Soft, nontender, nondistended with good bowel sounds heard. Inguinal area is normal. EXTREMITIES: Without cyanosis, clubbing or edema. NEUROLOGICAL: Gross nonfocal. SKIN: Warm and dry without any rash. - Assessment and Plan (1) Chest pain Current Visit: Yes Status: Acute Assessment and Plan: 03/07 53 year old female without prior hx of CAD presented with left sided chest pain and epigastric pain. 1st set of troponin was negative. EKG showed possible st-t elevation on V1 and biphasic t wave on V2, however, these findings were obscured by the EKG baseline shifting. CTA chest no PE but revealed cholilithiasis without signs of acute cholecystitis, no obvious findings suggests esophagitis or perforated PUD. - continue cycling troponin, tele monitoring, and EKG as needed. - Stress test and echo in am. - empirically treated for PUD with IV PPI and carafate. May consult GI if cardiac workup is negative. - Lipid panel an am. 03/08 Serial troponin was negative 3, EKG has no acute ST-T change overnight. Patient currently chest pain-free. Pending stress test and echocardiogram. 03/09 And currently is chest pain-free. Pending results of stress test. (2) Gall stones Current Visit: Yes Status: Acute Assessment and Plan: CT incidental finding of gall stones but no acute cholecystitis or biliary obstruction. Monitoring. (3) Pulmonary nodule Current Visit: Yes Status: Acute Assessment and Plan: incidental finding on CTA chest, outpatient f/u. (4) Depression Current Visit: No Status: Chronic Assessment and Plan: continue home meds. (5) Hx of peptic ulcer Current Visit: No Status: Chronic Assessment and Plan: Hx of PUD currently not on PPI. take NSAIDS at home for pain. No signs/symptoms of GI bleeding or perforation. Empirically started on IV PPI and carafate. Epigastric pain improving. General surgery consulted per family request, will schedule EGD once stress test is negative, appreciate general surgery help. (6) GERD (gastroesophageal reflux disease) Current Visit: No Status: Chronic Assessment and Plan: same as above. (7) DVT prophylaxis Current Visit: Yes Status: Acute Assessment and Plan: ambulate. - Time Spent with Patient Total time spent is greater than 50% in coordination of care (as documented) at patient's floor/unit and/or counseling patient: Greater than 35 minutes Plan of Care Discussed with: patient Internal Medicine: Result - Labs CBC & Chem 7: 03/08/19 03:45 03/08/19 03:45 - ABG Interpretation ABG results: PT/INR, D-dimer 754 ng/mLFEU (0-500) H 03/07/19 11:50 Consult Discharge Plan - Plan Referrals: Jc Mcintosh DO [Primary Care Provider] - 03/14/19 9:30 am () (1) Chest pain Qualifiers: Chest pain type: unspecified Qualified Code(s): R07.9 - Chest pain, unspecified (4) Depression Qualifiers: Depression Type: unspecified Qualified Code(s): F32.9 - Major depressive disorder, single episode, unspecified (6) GERD (gastroesophageal reflux disease) Qualifiers: Esophagitis presence: esophagitis presence not specified Qualified Code(s): K21.9 - Gastro-esophageal reflux disease without esophagitis
--- NOTE | 2019-03-09 11:47 | AcuteCareSurgery Progress Note ---
<Annabelle Cardoso - Last Filed: 03/09/19 11:45> Date of Encounter: 03/09/19 Time of Encounter: 08:30 - Assessment and Plan (1) Abdominal pain Current Visit: Yes Status: Acute 53-year-old female admitted with epigastric abdominal pain with left-sided chest pain Primary history of chronic gastritis and H. pylori identified on EGD in October 2018 Patient underwent cardiac workup today stress tests, findings from the stress test revealed a mild intensity stress perfusion defect involving the apex representing reversible ischemia Due to findings on stress test will postpone EGD until formal cardiology consultation incomplete evaluation Continue Carafate and Protonix Qualifiers: Abdominal location: epigastric Qualified Code(s): R10.13 - Epigastric pain Subjective Narrative: Patient seen and examined at bedside this morning. She has some epigastric pain. Underwent stress test today with findings for a small sized, mild intensity stress perfusion defect involving the apex representing reversible ischemia. Objective Vital Signs - Last 8 Hours Temp Pulse Resp BP Pulse Ox 03/09/19 11:20 98.6 F 71 15 109/69 94 03/09/19 09:10 98.6 F 74 15 131/79 99 03/09/19 03:56 98.4 F 73 16 137/84 96 Intake and Output 03/08/19 03/09/19 03/09/19 23:59 07:59 15:59 Other: Meal NPO Weight 138 kg Patient Weight 03/09/19 23:59 Weight 138 kg - General physical appearance well developed, well nourished - Eyes PERRL, normal ocular movement - ENT normal pinna, normal nares - Neck Neck exam: trachea midline, no venous distension - Respiratory normal expansion, normal respiratory effort - Cardiovascular Cardiovascular exam: Present: RRR - Abdomen Abdomen: Present: bowel sounds present, soft, non tender - Integumentary no rash - Musculoskeletal normal posture - Labs 03/08/19 03:45 03/08/19 03:45 Consult Discharge Plan - Plan Referrals: Jc Mcintosh DO [Primary Care Provider] - 03/14/19 9:30 am () <Lucian Barbosa - Last Filed: 03/09/19 13:50> Date of Encounter: 03/09/19 Objective Vital Signs - Last 8 Hours Temp Pulse Resp BP Pulse Ox 03/09/19 11:20 98.6 F 71 15 109/69 94 03/09/19 09:10 98.6 F 74 15 131/79 99 Intake and Output 03/08/19 03/09/19 03/09/19 23:59 07:59 15:59 Other: Meal NPO Weight 138 kg Patient Weight 03/09/19 23:59 Weight 138 kg - Labs 03/08/19 03:45 03/08/19 03:45 - Attending Attestation I examined this patient and my medical decision-making was reviewed with the Resident Physician. I agree with the documented findings, disposition and treatment plan as described except to the extent set forth below. Assessment and evaluation with the resident and agree with the above plan. Patient still has some discomfort. Decreased abdominal pain with no nausea or vomiting. We were awaiting the results of the echo study which unfortunately did show signs of mild ischemia that was reversible. Formal cardiology consult pending and we will postpone the EGD until possibly tomorrow.
--- NOTE | 2019-03-09 12:59 | Cardiology Consult Note ---
Date of Encounter: 03/09/19 Time of Encounter: 12:56 Assessment and Plan (1) Abnormal stress test Current Visit: Yes Status: Acute Per cardiology: -Stress test with small sized, mild intensity perfusion defect involving apex suggestive of ischemia. -Atypical chest pain reported. Suspect symptoms GI related. -Troponins negative -ECG with SR. -With low risk stress test and atypical chest pain, recommend medical management. -Will start asa, statin, BB. -Anticipate sign off once seen and evaluated by . Will arrange outpatient follow up. (2) Palpitations Current Visit: Yes Status: Acute Per cardiology: -Reports palpitations at 1303 yesterday afternoon. -Telemetry reviewed with one short run of atrial tachycardia. -Will add BB. (3) Preop cardiovascular exam Current Visit: Yes Status: Acute Per cardiology: -preop risk assessment for EGD. -Low risk abnormal stress test. -ECG with SR. -TTE pending. -TTE 2015 with LVEF preserved, no wall motion abnormalities noted. -If TTE results with no significant findings, Patient is at acceptable risk for low risk procedure. Discussion w patient/family: The assessment and plan as outlined above was discussed with the patient who expressed understanding and agreement. All questions were answered. Thank you for involving us in the care of your patient. Please call with any questions. Discussed and reviewed with History of Present Illness Consult date: 03/09/19 Requesting physician: Rene Coleman Consult reason: abnormal stress test Chief complaint: abdominal pain History of present illness: Ms. Red is a 53 year old female with a relevant past medical history of Depression, GERD, PUD, MARTIN, H.Pylori, who presented to [facility] with complaints of abdominal pain. Patient also states chest pain, however when asked to point where she had chest pain, patient touches epigastric area. Pateint states symptoms started while sitting at desk. Denies exertional symptoms. Reports no relief of chest pain with nitro. Reports relief after carafate and PPI. Denies current chest pain. Denies shortness of breath. Denies diaphoresis. Denies increased fatigue. Past Med Surg Social Fam HX - Past Medical History Attestation: Yes The following information was validated with the patient. Source: patient, old records reviewed Medical history: GERD Additional medical history: disorder of sacrum L4/L5,endometriosis,peptic ulcers ,retrolisthesis l2 on l3,bulding disc,lumbosacral sprain,sleep apnea Psychiatric history: anxiety, depression - Past Surgical History Surgical History: hysterectomy Additional surgical history: tonsils - Social History Smoking Status: Never smoker Smokeless Tobacco Status: No Alcohol use: occasionally Drug use: none - Family History Mother Living Status: Age at : 73 Cause of : CHF Hx Family Cardiac Disorders: Yes (Rheumatic Heart Disease, CHF, CABG, Mitral valve replacement) Hx Family Respiratory Disorders: Yes (pulmonary HTN) Hx Family GI Disorders: Yes (vimal) Father Living Status: Age at : 64 Cause of : [facility] cancer Hx Family Respiratory Disorders: Yes (lung) Medications and Allergies Acetaminophen [Tylenol] 1,000 mg PO Q6HR PRN 03/07/19 [History] Escitalopram [Lexapro] 20 mg PO DAILY 03/07/19 [History] Ibuprofen [Advil] 400 mg PO Q6H PRN 03/07/19 [History] Allergy/AdvReac Type Severity Reaction Status Date / Time meperidine [From Demerol] Allergy See Verified 03/07/19 11:45 Comments clarithromycin AdvReac Nausea Verified 03/07/19 15:42 All Systems Review: The remainder of the systems were reviewed and are negative - Cardiovascular Cardiovascular: as per HPI - Gastrointestinal Gastrointestinal: abdominal pain Physical Examination Vital Signs, Last 4 Hours Temp Pulse Resp BP Pulse Ox 03/09/19 11:20 98.6 F 71 15 109/69 94 03/09/19 09:10 98.6 F 74 15 131/79 99 General: Conversant, No Apparent Distress HEENT: Atraumatic, Normocephaly, Mucus Membranes Moist Neck: No JVD, Normal carotid pulses Cardiac: Reg Rate and Rhythm, Normal S1 and S2, No Murmur Lungs: Normal Breath Sounds, No Wheeze, Rales, Rhonchi Neuro: Alert and responsive, No focal deficits noted Abdomen: Soft, Other (tender to palpation) Skin: No rashes noted on visualized skin Musculoskeletal: No Chest Wall Tenderness Extremities: No Clubbing, No Cyanosis, No Edema, Normal Pulses Results 03/08/19 03:45 03/08/19 03:45 Active Medications Acetaminophen (Tylenol) 650 mg PO Q6HR PRN PRN Reason: Mild Pain/Fever Stop: 09/06/19 15:03 Last Admin: 03/08/19 09:32 Dose: 650 mg Documented by: Al Hydrox/Mg Hydrox/Simethicone (Maalox) 15 ml PO Q6HR PRN PRN Reason: Dyspepsia Stop: 09/06/19 15:03 Escitalopram Oxalate (Lexapro) 20 mg PO DAILY [facility] Stop: 09/07/19 09:01 Last Admin: 03/09/19 09:33 Dose: 20 mg Documented by: Magnesium Hydroxide (Milk Of Magnesia Conc) 10 ml PO DAILY PRN PRN Reason: Constipation Stop: 09/06/19 15:03 Naloxone HCl (Narcan) 0.4 mg IVP Q2MPRN PRN PRN Reason: SEE COMMENTS Stop: 09/06/19 15:03 Nitroglycerin (Nitroglycerin) 0.4 mg SL Q5MPRN PRN PRN Reason: Chest Pain Stop: 09/06/19 11:51 Last Admin: 03/07/19 12:09 Dose: 0.4 mg Documented by: Ondansetron HCl (Zofran) 4 mg IVP Q8HR PRN PRN Reason: Nausea And Vomiting Stop: 09/06/19 15:03 Last Admin: 03/07/19 23:13 Dose: 4 mg Documented by: Pantoprazole Sodium (Protonix) 40 mg IVP Q12HR [facility] Stop: 09/06/19 18:01 Last Admin: 03/09/19 05:39 Dose: 40 mg Documented by: Promethazine HCl (Phenergan) 12.5 mg IVP Q6HR PRN PRN Reason: Nausea And Vomiting Stop: 09/06/19 15:03 Last Admin: 03/07/19 17:48 Dose: 12.5 mg Documented by: Sucralfate (Carafate) 1 gm PO QIDAC [facility] Stop: 09/06/19 16:31 Last Admin: 03/09/19 11:31 Dose: Not Given Documented by: Tramadol HCl (Ultram) 50 mg PO Q6HR PRN PRN Reason: Moderate Pain Stop: 09/06/19 15:03 Last Admin: 03/09/19 09:33 Dose: 50 mg Documented by: Laboratory Tests 03/07/19 03/07/19 03/08/19 11:50 18:53 00:50 Hgb Creatinine Troponin I < 0.03 < 0.03 < 0.03 03/08/19 03/08/19 03:45 03:45 Hgb 12.0 Creatinine 0.93 Troponin I - Imaging and Cardiology Chest Xray: report reviewed Stress Test: report reviewed Echo: pending - EKG Interpretation EKG results cardiology: personally reviewed (ECG with SR, HR 61.), other (Telemetry reviewed with average HR previous 12 hours noted to be 73, SR. PVCs and PACs noted.) Consult Discharge Plan - Plan Referrals: Jc Mcintosh DO [Primary Care Provider] - 03/14/19 9:30 am ()
[2019-03-09] MEDS: Aspirin Enteric Coated 81 MG Tablet PO SCH (13:49)
[2019-03-09] MEDS: Acetaminophen 325 MG TABLET PO PRN (23:04)
[2019-03-10 06:01] LABS: Basophils % 0.2 %; Eosinophils # 0.3 K/mcL (0.0-0.6); Eosinophils % 5.9 %; Hematocrit 36.2 % (35.3-44.9); Hemoglobin 11.6 g/dL (11.5-15.4); Immature Granulocytes % 0.2 % (0-4); Lymphocytes # 1.4 K/mcL (0.6-4.6); Lymphocytes % 33.2 %; Mean Corpuscular Hemoglobin 29.8 pg (28.0-33.3); Mean Corpuscular Volume 93.1 fL (83.0-100.0); Mean Platelet Volume 10.1 fL (9.4-12.4); Monocytes # 0.6 K/mcL (0.0-1.3); Monocytes % 13.3 %; Platelet Count 225 K/mcL (140-400); Red Blood Count 3.89 M/mcL (3.82-4.97); Red Cell Distribution Width 13.6 % (11.5-14.5); Segmented Neutrophils % 47.2 %
[2019-03-10 06:21] LABS: BUN/Creatinine Ratio 11 (6-26); Blood Urea Nitrogen 9 mg/dL (6-20); Calcium 8.8 mg/dL (8.6-10.3); Carbon Dioxide 23 mEq/L (23-29); Chloride 107 mEq/L (98-107); Glucose 103 mg/dL (70-105); Osmolality,Calculated 287 (280-300); Potassium 3.8 mEq/L (3.5-5.1); Sodium 139 mEq/L (136-145); eGFR For Non-African Americans > 60 (> 60)
[2019-03-10] MEDS: Aspirin Enteric Coated 81 MG Tablet PO SCH (06:45)
[2019-03-10] MEDS: Sucralfate 1 GM TABLET PO SCH (06:45)
[2019-03-10] MEDS: Pantoprazole 40 MG VIAL IVP SCH (06:45)
[2019-03-10] MEDS ORDERED: *HR* Midazolam HCl 2 MG/2 ML VIAL ONE (07:17)
[2019-03-10] MEDS ORDERED: *HR* Propofol 200 MG/20 ML VIAL IVP ONE (07:17)
[2019-03-10] MEDS ORDERED: Lidocaine -MPF 2% 2 ML VIAL ONE (07:20)
[2019-03-10] MEDS ORDERED: *HR* Succinylcholine 200 MG/10 ML VIAL IVP ONE (07:20)
--- NOTE | 2019-03-10 07:54 | Anesthesia Evaluation PreOp ---
Date of Encounter: 03/10/19 Time of Encounter: 08:09 - Past History Planned Operation: EGD Cardiac History: Angina (s/p cardiology consult yesterday: Low risk abnormal stress test which I favor either breast attenuation artifact or negatively remodeled LAD from sedentary lifestyle/obesity over obstructive CAD Palpitations - possible short run of atrial tach - which is minimally symptomatic for her Preop evaluation - EGD Indigestion Morbid obesity Discussed her findings, C possibility, medical therapy and slowly increasing her physical activity. 1) Acceptable risk for endoscopy 2) Low risk stress and no angina - recommend slowly increasing physical activity and aspirin 81mg if EGD negative 3) Patient prefers to avoid medications and is minimally symptomatic palpitations and cholesterol acceptable), Arrhythmia (a fib) Pulmonary History: MARTIN Dx [employer] History: Other (bulging discs) Other Medical History: GERD (hx peptic ulcers), Other (bmi 45) Anesthesia History: No Prior Anesthetic Complications Alcohol Use: occasionally Drug use: none Medications and Allergies Acetaminophen [Tylenol] 1,000 mg PO Q6HR PRN 03/07/19 [History] Escitalopram [Lexapro] 20 mg PO DAILY 03/07/19 [History] Ibuprofen [Advil] 400 mg PO Q6H PRN 03/07/19 [History] Allergy/AdvReac Type Severity Reaction Status Date / Time meperidine [From Demerol] Allergy See Verified 03/07/19 11:45 Comments clarithromycin AdvReac Nausea Verified 03/07/19 15:42 - Meds/Allergy Pre-op Review Medications Reviewed: Yes Allergies Reviewed: Yes Beta Blockers on Current Med List: No Anesthesia Results - Labs 03/10/19 05:43 03/10/19 05:43 - Imaging EKG: report reviewed, image reviewed (SR) Additional studies: nuclear stress: Impression: Small sized, mild intensity stress perfusion defect involving the apex representing reversible ischemia. Pharmacologic stress ECG is negative for ischemia at level of heart rate achieved. The patient demonstrated a hypotensive blood pressure response. Initial BP 110/82 decreased to 76/60 mmHg during pharmacologic infusion. Patient had chest pain/pressure during stress. Gated EF = 67%. Findings communicated to ordering provider. Cardiology consult: I examined this patient and my medical decision-making was reviewed with the [employer]. I agree with the documented findings, disposition and treatment plan as described except to the extent set forth below. A/P: Low risk abnormal stress test which I favor either breast attenuation artifact or negatively remodeled LAD from sedentary lifestyle/obesity over obstructive CAD Palpitations - possible short run of atrial tach - which is minimally symptomatic for her Preop evaluation - EGD Indigestion Morbid obesity Discussed her findings, C possibility, medical therapy and slowly increasing her physical activity. 1) Acceptable risk for endoscopy 2) Low risk stress and no angina - recommend slowly increasing physical activity and aspirin 81mg if EGD negative 3) Patient prefers to avoid medications and is minimally symptomatic palpitations and cholesterol acceptable Thank you for the consult, Sony Bryant MD [facility] TTE: Impressions: LVEF 60%. Normal left ventricular size and systolic function. Normal diastolic function of the left ventricle. Dilated RV with normal function. No significant valvular dysfunction. No significant TR gradient to estimate RVSP. IVC is not dilated. Anesthesia Exam Last Vital Signs Temp 98.2 F 03/10/19 07:34 Pulse 71 03/10/19 07:34 Resp 15 03/10/19 07:34 BP 109/75 03/10/19 07:34 Pulse Ox 96 03/10/19 07:34 Weight: 133 kg NPO (# of Hours): > 8 hrs - HEENT Pupil (Motor): Pupils equal, EOMI Mallampati: III Teeth: Normal Oral Opening: Greater than 3 - [employer] LOC: Oriented - Cardiac Rhythm: Regular Murmur: None - Pulmonary Breath Sounds: bilateral Clear Respiratory Effort: Symmetrical Anesthesia Assess/Plan ASA Score: 3 Level of consciousness: Cooperative Anesthetic Plan: MAC Monitoring Plan: Standard Monitors Recovery Plan: PACU
[2019-03-10] MEDS ORDERED: Simethicone 40 MG/0.6 ML MLS IR ONE (08:19)
--- NOTE | 2019-03-10 08:28 | Event Note ---
Date of Encounter: 03/10/19 Time of Encounter: 08:27 EGD completed. Esophagus showed evidence of mild irregularity at the Z line. Biopsies obtained. The stomach appeared grossly normal but biopsies for histology and close were obtained. In the duodenum there was a small area of mild erythema that was also biopsied. No ulcers, no evidence of bleeding. Pathology pending. Will advance diet and we will sign off. Once pathology report has returned we will inform the patient of the results. Thank you very much.
[2019-03-10] MEDS ORDERED: 0.9 % Sodium Chloride 1,000 ML IVC SCH ×2 (08:30→08:37)
[2019-03-10] MEDS ORDERED: *HR* Promethazine 25 MG/ML VIAL IVP PRN (08:37)
[2019-03-10] MEDS ORDERED: Mag Hydrox/Al Hydrox/Simeth 30 ML UDC PO PRN (08:37)
[2019-03-10] MEDS ORDERED: Ondansetron 4 MG/2 ML VIAL IVP PRN (08:37)
[2019-03-10] MEDS ORDERED: Nitroglycerin 0.4 MG TAB.SUBL SL PRN (08:37)
[2019-03-10] MEDS ORDERED: Acetaminophen 325 MG TABLET PO PRN (08:37)
[2019-03-10] MEDS ORDERED: Naloxone 0.4 MG/ML INJ IVP PRN (08:37)
[2019-03-10] MEDS ORDERED: MOM Conc 10 ML UD.LIQ PO PRN (08:37)
[2019-03-10] MEDS ORDERED: traMADol 50 MG TABLET PO PRN (08:37)
--- NOTE | 2019-03-10 08:51 | Anesthesia Evaluation Post Op ---
Date of Encounter: 03/10/19 Time of Encounter: 08:50 - Vital Signs Vital Signs: Last Vital Signs Temp 98.2 F 03/10/19 07:34 Pulse 64 03/10/19 08:09 Resp 18 03/10/19 08:09 BP 139/70 03/10/19 08:09 Pulse Ox 96 03/10/19 08:09 - Lungs Lungs: Clear Ascult./Percussion - Airway Airway: Non-obstructed - Cardiovascular Regular Rate - Mental Status Mental Status: Alert & Oriented, Answers Appropriately - Pain Pain Scale: 0 - Nausea Vomiting Nausea Vomiting: Not Present - Hydration Hydration: NPO - Discharge PostOp Status: Transfer Patient to floor
[2019-03-10] MEDS ORDERED: Aspirin Enteric Coated 81 MG Tablet PO SCH (09:00)
--- NOTE | 2019-03-10 09:50 | Discharge Summary ---
- NOTES TO OUTPATIENT PROVIDER Notes to Outpatient Provider: f/u with surgery within a month. f/u with cardiology within a month. f/u with PCP within a week. Orders not resulted at time of discharge: Pending orders 03/07/19 15:07 NM alix perf SPECT multi [NM] Routine 03/10/19 08:25 Surgical Pathology [PTH] Routine 03/10/19 08:27 H. pylori Urease Culture [RM] Routine Date of Encounter: 03/10/19 Time of Encounter: 09:47 - Discharge Diagnosis (1) Chest pain Priority: Primary Status: Acute Qualifiers: Chest pain type: unspecified Qualified Code(s): R07.9 - Chest pain, unspecified (2) Gall stones Priority: Secondary Status: Chronic (3) Pulmonary nodule Priority: Primary Status: Acute (4) Depression Priority: Secondary Status: Chronic Qualifiers: Depression Type: unspecified Qualified Code(s): F32.9 - Major depressive disorder, single episode, unspecified (5) Hx of peptic ulcer Priority: Secondary Status: Chronic (6) GERD (gastroesophageal reflux disease) Priority: Secondary Status: Chronic Qualifiers: Esophagitis presence: esophagitis presence not specified Qualified Code(s): K21.9 - Gastro-esophageal reflux disease without esophagitis (7) DVT prophylaxis Priority: Primary Status: Acute Hospital course: Ms. Red is a 53-year-old female with PMH of depression, GERD, and peptic ulcer disease presents for evaluation of chest pain. Patient states symptom onset occurred approximately an hour prior to arrival. Patient states she was not feeling well this morning. Notes nausea but no vomiting. Patient describing left sided chest pain with pain on neck as well as pain in her shoulder. Patient denies prior history of heart attacks. Patient denies history of hypertension or diabetes. Does have family history of early heart disease with first-degree relatives having heart attacks in their early 40s. Patient denies any fevers or cough. No aggravating or alleviating symptoms. No pleuritic component. No history of DVT or PE. Patient states she does see a doctor on a regular basis. In the ED, pt first set of troponin was negative, EKG showed questionable ST-T changes on leads V1-V3. CTA chest revealed no PE, several enlarged mediastinal lymph nodes. She received one NTG with relief of symptoms. She later on reported left upper quadrant and epigastric pain and received one dose of Zofran. Pt also reported taking ibuprofen at home for pain. She will be admitted for further evaluation. Serial troponin was negative, EKG and telemetry monitoring has no acute ST-T change, patient had a nuclear stress test which revealed a small sized mild intensity is stressed perfusion defect involving the apex, this could represent a reversible ischemia. Cardiology was consulted, medical management and outpatient follow-up was recommended. General surgery was consulted, and EGD was performed which revealed mild mucosal erythema in the duodenal without evidence of peptic ulcer or bleeding. A CTA of chest was performed which revealed no acute pulmonary embolism, an incidental finding of pulmonary nodule and the several enlarged lymph nodes at the lower mediastinum. Patient was instructed to follow-up with PCP and repeat CT if indicated. On the discharge day, patient reported improved epigastric pain, her vital signs were stable, labs were unremarkable. Patient is discharged home today, he was instructed to continue taking aspirin and the PPI, follow up with cardiology, general surgery, and the PCP as scheduled. Discharge discussed with: patient Time spent discussing smoking cessation with patient: more than 10 minutes - Time Spent with Patient Total time spent providing and/or coordinating discharge services: Time spent: Greater than 30 minutes - Discharge Medications Prescriptions: New Aspirin Enteric Coated [Aspirin EC] 81 mg PO DAILY #30 tablet. Omeprazole [PriLOSEC] 40 mg PO DAILY #30 cap Continued Escitalopram [Lexapro] 20 mg PO DAILY Acetaminophen [Tylenol] 1,000 mg PO Q6HR PRN PRN Reason: Pain Discontinued Ibuprofen [Advil] 400 mg PO Q6H PRN PRN Reason: Pain Home Medications: Acetaminophen [Tylenol] 1,000 mg PO Q6HR PRN 03/07/19 [History] Escitalopram [Lexapro] 20 mg PO DAILY 03/07/19 [History] Aspirin Enteric Coated [Aspirin EC] 81 mg PO DAILY #30 tablet. 03/10/19 [Rx] Omeprazole [PriLOSEC] 40 mg PO DAILY #30 cap 03/10/19 [Rx] Allergies/Adverse Reactions: Allergy/AdvReac Type Severity Reaction Status Date / Time meperidine [From Demerol] Allergy See Verified 03/07/19 11:45 Comments clarithromycin AdvReac Nausea Verified 03/07/19 15:42 Date of admission: 03/09/19 17:24 Primary care physician: Jacques Mcintosh DO Consults: 03/08/19 16:42 Consult to Surgery [CONS] Routine Consulting Provider: Acute Care Surgery Reason for Consult: epigastric pain, Hx of PUD Call Completed: Yes 03/09/19 11:30 Consult to Cardiology [CONS] Routine Comment: Consulting Provider: Cardiology [place] Reason for Consult: abnormal stress test Call Completed: Yes Anticipated date of discharge: 03/10/19 - Constitutional Vitals: Temp Pulse Resp BP Pulse Ox 98.2 F 65 14 92/54 99 03/10/19 07:34 03/10/19 08:45 03/10/19 08:45 03/10/19 08:45 03/10/19 08:45 General appearance: Present: A&O X 3 Exam: PHYSICAL EXAMINATION: GENERAL APPEARANCE: The patient is alert, oriented and in no acute distress. HEENT: Head is normocephalic. The sinuses are nontender. Pupils are equal and reactive. The nares are patent. Oropharynx clear without lesions. NECK: Supple without lymphadenopathy. HEART: Regular rate and rhythm. LUNGS: No crackles or wheezes are heard. ABDOMEN: Soft, nontender, nondistended with good bowel sounds heard. Inguinal area is normal. EXTREMITIES: Without cyanosis, clubbing or edema. NEUROLOGICAL: Gross nonfocal. SKIN: Warm and dry without any rash. - Patient Status Disposition: Home, Self-Care Condition: Fair Functional capacity at discharge: independent ambulation Overall status at discharge: patient is progressing back to baseline - Discharge Instructions Follow Up With: Jc Mcintosh DO [Primary Care Provider] - 03/14/19 9:30 am () - Diet and Activity Activity: increase activity as tolerated Diet: low fat, low cholesterol, low salt diet
[2019-03-10 09:54] VITALS: BP 94/58
[2019-03-10] MEDS ORDERED: Sucralfate 1 GM TABLET PO SCH (11:30)
[2019-03-10] MEDS ORDERED: Pantoprazole 40 MG VIAL IVP SCH (18:00)
--- NOTE | 2019-03-11 09:37 | Electrocardiograph Report ---
[place] [id number] Test Date: 2019-03-07 Pat Name: Winifred Red Department: [id number] Room: 3B33 Gender: Administrative Executive: : 1965 Requested By: Damien Salcedo Order Number: [id number] Reading MD: Elver Roper Measurements Intervals [place] Rate: 88 P: 53 [place]: 151 QRS: -57 QRSD: 106 T: 39 QT: 368 QTc: 446 Interpretive Statements Sinus rhythm LAD, consider left anterior fascicular block Low voltage, precordial leads Poor R wave progression RSR' in V1 or V2, right VCD or RVH Electronically Signed On 03-11-2019 9:35:27 EDT by Elver Roper
== END 2019-03-10 10:35 | disposition home or self-care (01) | DRG 392 ==
LOC: EMEROOARM 11:42 → 3BNU 11:42
PROVIDERS: ADMIT Internal Medicine Nephrology; ATTEND Internal Medicine Nephrology
PROC: ENDOEBX (2019-03-10 08:00)